=== PATIENT | female | born 1970 | race Caucasian/White ===

== ENCOUNTER 2022-06-17 09:14 | Outpatient (RCR) | payer OTHER, SELFPAY ==
[2022-06-17 09:27] VITALS: BP 105/74; PULSE 84; RESP 16; TEMP 36.4; O2SAT 98
== END 2022-12-14 23:59 | disposition home or self-care (01) ==
LOC: CCIC 09:14
PROVIDERS: Visit Provider Radiology Radiation Oncology
DX: C13.9 Malignant neoplasm of hypopharynx, unspecified (principal)
CPT/HCPCS: 99211

== ENCOUNTER 2022-06-17 10:35 | Outpatient (CLI) | payer OTHER, SELFPAY ==
[2022-06-17 11:36] LABS: Creatinine* 0.5 mg/dL (0.5-1.5); Estimated Glomerular Filt Rate 112 ml/min
== END 2022-06-17 10:36 | disposition home or self-care (01) ==
PROVIDERS: Visit Provider Radiology Radiation Oncology
DX: C13.9 Malignant neoplasm of hypopharynx, unspecified (principal)
CPT/HCPCS: 36415; 82565; 99211

== ENCOUNTER 2022-07-13 09:09 | Outpatient (CLI) | payer OTHER, SELFPAY ==
--- NOTE | 2022-07-13 09:15 | FL_ITS ---
Patient: WILMAN FELICIANO Facility:?[facility] Patient ID:?[id number] Site Patient ID:?[id number]. Site :?[id number] Study:?XRay-ST Neck MODIFIED BARIUM SWALLOW - DR DAVIS TO R-07/13/2022 9:36:11 AM Ordering Physician:SVEN Final Report: INDICATION: MALIGNANT LESION OF HYPOPHARYNX TECHNIQUE: Modified barium swallow. Fluoroscopic time 52 seconds. COMPARISON: None FINDINGS/IMPRESSION: Anatomical structures are normal. Swallowing mechanism appears within normal limits. No episodes of aspiration. Laryngeal penetration occurred with thin barium after several swallows. Dictated by Vel Davis MD @ 07/13/2022 9:41:19 AM Signed by:?Vel Davis MD @07/13/2022 9:41:19 AM (Electronic Signature)
== END 2022-07-13 09:10 | disposition home or self-care (01) ==
LOC: RAD 09:11
PROVIDERS: Visit Provider Physician Assistant
DX: C13.9 Malignant neoplasm of hypopharynx, unspecified (principal)
CPT/HCPCS: 74230; 92611